=== PATIENT | male | born 1985 | race Caucasian/White ===

== ENCOUNTER → 2020-03-08 | Outpatient (CLI) | payer BC ==
--- NOTE | 2020-03-08 15:23 | US ---
EXAMINATION TYPE: US scrotum with doppler. Grayscale and color Doppler Duplex imaging performed of t he scrotum. DATE OF EXAM: 03/08/2020 COMPARISON: NONE CLINICAL HISTORY: N50.8 Other specified disorders of male genital or. Right testicular pain. EXAM MEASUREMENTS: TESTICLES: Right Testicle: 4.3 x 1.8 x 3.0 cm Left Testicle: 4.6 x 1.3 x 3.4 cm EPIDIDYMIS HEAD: Right Epididymis: 1.0 cm Left Epididymis: 0.7 cm Bilateral cysts right measuring 0.7cm left measuring 0.5cm Doppler performed to assess for testicular vascularity; good bilateral color flow and waveforms are s een. There is no evidence of testicular torsion. Presence of hydroceles: no Presence of varicoceles: no IMPRESSION: 1. Right epididymal cyst. 2. No suspicious changes suggest torsion.
== END | disposition home or self-care (01) ==
LOC: RADUSWWP 13:43
PROVIDERS: ATTEND Urology
DX: N50.3 Cyst of epididymis (principal)
CPT/HCPCS: 76870; 93975